=== PATIENT | female | born 1970 | race African-American/Black ===

== ENCOUNTER 2021-08-30 09:13 | Emergency (ER) | payer MEDICAID ==
[~2021-08-30] VITALS: Ht 170.2 cm; Wt 128.4 kg
[2021-08-30 09:14] VITALS: BP 145/74
== END 2021-08-30 15:44 | disposition left against medical advice (07) ==
LOC: ER 09:13
DX: I80.3 Phlebitis and thrombophlebitis of lower extremities, unspecified (principal); I25.10 Atherosclerotic heart disease of native coronary artery without angina pectoris; Z90.710 Acquired absence of both cervix and uterus; Z86.718 Personal history of other venous thrombosis and embolism
CPT/HCPCS: 93971

== ENCOUNTER 2021-09-07 18:08 | Emergency (ER) | payer MEDICAID ==
[~2021-09-07] VITALS: Ht 170.2 cm; Wt 127.0 kg
[2021-09-07 18:23] VITALS: BP 148/44
[2021-09-07 20:14] LABS: Basophils # (auto) 0.1 10 ^3/uL (0-0.2); Eosinophils # (auto) 0.1 10 ^3/uL (0-0.8); Monocytes # (auto) 0.4 10 ^3/uL (0-1.3); Neutrophils # (auto) 6.2 10 ^3/uL (1.6-8.6)
[2021-09-07 20:15] LABS: Basophils % (auto) 0.8 % (0.0-2.0); Eosinophils % (auto) 1.2 % (0.0-7.0); Hematocrit 35.1 % (36.0-46.0); Lymphocytes # (auto) 1.2 10 ^3/uL (0.4-5.4); Lymphocytes % (auto) 15.5 % (10.0-50.0); Mean Corpuscular Hemoglobin 24.5 pg (28.0-32.0); Mean Corpuscular Hgb Conc. 31.5 g/dL (32.0-36.0); Monocytes % (auto) 5.3 % (0.0-12.0); Neutrophils % (auto) 77.2 % (37.0-80.0); Red Cell Distribution Width 17.8 % (11.8-14.3)
[2021-09-07 20:30] LABS: Albumin 3.6 g/dL (3.4-5.0); Calcium 8.9 mg/dL (8.5-10.1); Potassium 3.9 mmol/L (3.5-5.1)
[2021-09-07 20:34] LABS: BUN/Creatinine Ratio 23.7; Bilirubin, Total 0.3 mg/dL (0.2-1.0); Total Protein 7.7 g/dL (6.4-8.2)
== END 2021-09-08 01:20 | disposition left against medical advice (07) ==
LOC: ER 18:14
DX: R22.42 Localized swelling, mass and lump, left lower limb (principal); Z53.21 Procedure and treatment not carried out due to patient leaving prior to being seen by health care provider
CPT/HCPCS: 36415; 80053; 85025